=== PATIENT | male | born 1985 | race African-American/Black ===

== ENCOUNTER 2021-02-08 18:26 | Inpatient (IN) | payer MEDICAID ==
[~2021-02-08] VITALS: Ht 180.3 cm; Wt 77.0 kg
[2021-02-08] MEDS ORDERED: MORPHINE 4 MG/ML 1ML VIAL/SYRINGE (J2270) IV ONE (21:00)
[2021-02-08] MEDS ORDERED: ONDANSETRON 4MG/2ML VIAL IV ONE (21:00)
[2021-02-08] MEDS ORDERED: NS 1,000 ML IV ONE (21:00)
[2021-02-08] MEDS ORDERED: BUPR300T92 PO (21:03)
[2021-02-08] MEDS ORDERED: BUPR150T12 PO (21:03)
[2021-02-08] MEDS ORDERED: BUSP5TA PO (21:05)
[2021-02-08 21:39] LABS: BASO % 0.3 % (0.0-1.0); EOS # 0.2 10^3/uL (0.0-0.5); EOS % 2.3 % (0.0-3.0); HEMATOCRIT 42.5 % (42.0-52.0); HEMOGLOBIN 14.4 g/dl (13.5-17.5); LYMPH % 27.9 % (24.0-44.0); MEAN CORPUSCULAR HEMOGLOBIN 31.9 pg (27.0-33.0); MEAN CORPUSCULAR HGB CONC 33.9 g/dl (32.0-36.5); MEAN CORPUSCULAR VOLUME 94.2 fl (80.0-96.0); MONO # 1.4 10^3/uL (0.0-0.8); MONO % 12.9 % (2.0-8.0); NEUTROPHILS % 56.3 % (36.0-66.0); PLATELET COUNT, AUTOMATED 224 10^3/uL (150-450); RED BLOOD COUNT 4.51 10^6/uL (4.30-6.10); WHITE BLOOD COUNT 10.6 10^3/uL (4.0-10.0)
[2021-02-08 21:55] LABS: ALBUMIN 3.8 GM/DL (3.2-5.2); ALT/SGPT 35 U/L (12-78); BILIRUBIN,DIRECT 0.2 MG/DL (0.0-0.2); BILIRUBIN,TOTAL 0.5 MG/DL (0.2-1.0); BLOOD UREA NITROGEN 7 MG/DL (7-18); CARBON DIOXIDE LEVEL 28 MEQ/L (21-32); CHLORIDE LEVEL 106 MEQ/L (98-107); CREATININE FOR GFR 1.03 MG/DL (0.70-1.30); GLOMERULAR FILTRATION RATE > 60.0 (>60); GLUCOSE, FASTING 93 MG/DL (70-100); LIPASE 61 U/L (73-393); POTASSIUM SERUM 4.2 MEQ/L (3.5-5.1); SODIUM LEVEL 140 MEQ/L (136-145); TOTAL PROTEIN 7.4 GM/DL (6.4-8.2)
[2021-02-08] MEDS ORDERED: ISOVUE-370 76% 100ML VIAL As Ordered ONE (21:57)
[2021-02-08] MEDS ORDERED: KETOROLAC 30 MG/ML 1ML VIAL IV ONE (23:00)
[2021-02-08] MEDS ORDERED: ONDANSETRON 4MG/2ML VIAL IV PRN (23:55)
[2021-02-09] MEDS ORDERED: BUSP5TA PO (00:37)
[2021-02-09] MEDS ORDERED: BUPR150T12 PO (00:37)
[2021-02-09] MEDS ORDERED: VIST50CA PO (00:37)
[2021-02-09] MEDS ORDERED: VALT1TAB PO (00:37)
[2021-02-09 01:23] LABS: RSV AMPLIFICATION NEGATIVE (NEGATIVE)
[2021-02-09] MEDS: AMPICILLIN SOD/SULBACTAM SOD 3 GM in D5W MINI-BAG PLUS 100 ML IV SCH ×4 (01:47→17:26)
[2021-02-09] MEDS: LR 1,000 ML IV SCH ×2 (01:47→11:01)
[2021-02-09] MEDS: PERCOCET 5MG/325MG TAB PO PRN ×4 (02:00→16:43)
--- NOTE | 2021-02-09 05:26 | HPEPDOC ---
General Surgery H&P Date of Admission Feb 09, 2021 Attending Physician: YANIQUE OCASIO MD History and Physical CHIEF COMPLAINT: abdominal pain HISTORY OF PRESENT ILLNESS: Patient is a 35-year-old gentleman who was recently transferred to [facility], previously from [place]. He comes to the emergency room complaining of nearly a week history of ongoing abdominal pain primarily centered over the right lower abdomen. He reports that he has been eating more of a meat type of diet due to the holidays for the past couple weeks and he felt somewhat constipated and actually took some laxatives over the weekend. He complains of progressive crampy then sharp constant right sided lower abdominal pain. He felt nauseated and had one episode of vomiting over the weekend and felt febrile. He remarks that this is almost the same sensation that he felt when he was diagnosed with acute appendicitis back in 2011. He had laparoscopic appendectomy done at that time in [place]. He also reports prior history of acute diverticulitis. As his symptoms did not improve and did not resolve after the weekend he presented himself to the emergency department. In the emergency room he was noted to be afebrile, tender over the right lower quadrant area. He had minimal leukocytosis. He is CT abdomen and pelvis that was done as part of the work-up which was initially read of's possible acute appendicitis. Thus I was called into evaluate the patient. ALLERGIES: Please see below. HOME MEDICATIONS: Please see below. PAST MEDICAL HISTORY: 1. History of acute diverticulitis, prior appendicitis 2. Gastroesophageal reflux. 3- depression PAST SURGICAL HISTORY: 1. right shoulder surgery. 2. appendectomy 3. hernia repair x 3. PERSONAL/SOCIAL HISTORY: Reports smoking, occasional alcohol intake. REVIEW OF SYSTEMS: GENERAL: Patient symptoms ongoing since last week, reports low-grade fever at home over the weekend. Denies any sick contacts.. HEENT: Denies any problems with vision or hearing. Denies hoarseness or changes in his voice. NECK: Denies any neck pain. CARDIOVASCULAR: Denies any chest pains. MUSCULOSKELETAL: Denies joint pains back pains. SKIN: Denies rash. NEUROLOGIC: Denies headaches. PSYCHIATRIC: Reports history of depression on medication. ENDOCRINE: Denies thyroid disease. HEMATOLOGY/ONCOLOGY: Denies any bleeding or clotting disorder. PULMONARY: Denies chronic cough, dyspnea and wheezing. GASTROINTESTINAL: See HPI. GENITOURINARY: Denies dysuria, frequency, hematuria and nocturia. ENDOCRINE: Denies polydipsia, polyphagia, polyuria, heat or cold intolerance. INFECTIOUS: Denies any recent upper respiratory tract infection, UTI, need for use of antibiotics. NUTRITION: Reports poor appetite since . PHYSICAL EXAMINATION: VITAL SIGNS: Please see below. GENERAL APPEARANCE: Patient seen, sitting up on the bed, mildly uncomfortable but otherwise does not appear to be in any acute distress. He is pleasant and cooperative.. Awake, alert, oriented. HEENT: Normocephalic, atraumatic. Anicteric sclerae. Lips moist. CHEST: No chest wall abnormalities. Normal respiratory motion/effort. NECK: Supple. No thyromegaly. No lymphadenopathies. LUNGS: Lung sounds are clear to auscultation bilaterally. No wheezing appreciated. HEART: No chest wall abnormalities. Heart rate and rhythm are regular with no murmurs. ABDOMEN: Abdomen is soft, relatively flat, nondistended. Laparoscopic port sites from his appendectomy noted. No umbilical, incisional hernias. He is tender on deep palpation over the right lower quadrant area, no rebound or guarding. SKIN: Warm and dry. EXTREMITIES: No deformities, no significant edema. NEUROLOGICAL: Awake, alert and oriented normal extremity movement. ANCILLARIES:. LABORATORY DATA: Please see below. MICROBIOLOGY: Please see below. IMAGING: CT abdomen and pelvis Initially the overnight radiologist read the CT is having acute appendicitis with an appendicolith at the base. This was reviewed by our radiologist in- house and discussed with me. He thinks the earlier referred to appendicolith as the staple line. He does not particularly see any remnant of the appendix. He thinks there is an isolated ascending colon diverticuli with associated diverticulitis, small amount of reactive fluid in the right pericolic gutter IMPRESSION AND PLAN: Patient with right lower quadrant pain and discomfort, prior appendectomy. Initially we entertain possibility of stump appendicitis and I actually booked him to the OR for possible laparoscopic exploration. After discussing with our radiologist, he is revised the reading. The earlier appendicolith was noted this most likely staple line. There is a separate diverticula in the ascending colon which appears inflamed thus more consistent with diverticulitis at the ascending colon. No gross perforation. No abscesses noted. Patient is afebrile here though he is noticeably tender over the right lower quadrant area. I have earlier booked him to the OR, will hold off any surgery and treat him somebody who was noncomplicated acute diverticulitis on the right side with IV antibiotics. I will keep him on n.p.o. with some sips of water and ice chips for comfort until the pain improves. We will monitor his improvement or nonimprovement. Vital Signs Vital Signs Date Time Temp Pulse Resp B/P (MAP) Pulse Ox O2 Delivery O2 Flow Rate FiO2 02/09/21 03:00 16 02/09/21 02:00 98.7 64 118/62 (80) 96 Room Air I&Os I&O- Last 24 Hours up to 6 AM 02/09/21 06:00 Intake Total 1000 ml Balance 1000 ml Laboratory Data Labs 24H Laboratory Tests 2 02/08/21 19:15: Immature Granulocyte % (Auto) 0.3, Neutrophils (%) (Auto) 56.3, Lymphocytes (%) (Auto) 27.9, Monocytes (%) (Auto) 12.9H, Eosinophils (%) (Auto) 2.3, Basophils (%) (Auto) 0.3, Neutrophils # (Auto) 6.0, Lymphocytes # (Auto) 3.0, Monocytes # (Auto) 1.4H, Eosinophils # (Auto) 0.2, Basophils # (Auto) 0.0, Nucleated Red Blood Cells % (auto) 0.0, Anion Gap 6L, Glomerular Filtration Rate > 60.0, Calcium Level 9.0, Total Bilirubin 0.5, Direct Bilirubin 0.2, Aspartate Amino Transf (AST/SGOT) 18, Alanine Aminotransferase (ALT/SGPT) 35, Alkaline Phosphatase 79, Total Protein 7.4, Albumin 3.8, Albumin/Globulin Ratio 1.1, Lipase 61L 02/09/21 00:16: Coronavirus (COVID-19)(PCR) NEGATIVE, Influenza Type A (RT-PCR) NEGATIVE, Influenza Type B (RT-PCR) NEGATIVE, Respiratory Syncytial Virus (PCR) NEGATIVE CBC/BMP Laboratory Tests 02/08/21 19:15 Home Medications Scheduled Bupropion Hcl (Bupropion Xl) 150 Mg Tab.er.24h, 150 MG PO DAILY, (Reported) Buspirone HCl (Buspirone HCl) 5 Mg Tablet, 5 MG PO TID, (Reported) Hydroxyzine Pamoate (Vistaril) 25 Mg Capsule, 25 MG PO TID, (Reported) Valacyclovir HCl (Valtrex) 1,000 Mg Tablet, 1 GM PO DAILY, (Reported) Allergies Coded Allergies: No Known Allergies (Unverified , 02/08/21) A-FIB/CHADSVASC A-FIB History Current/History of A-Fib/PAF?: No Current PO Anticoag Therapy: No YANIQUE OCASIO MD Feb 09, 2021 05:26
[2021-02-09 06:58] LABS: BASO % 0.4 % (0.0-1.0); EOS # 0.2 10^3/uL (0.0-0.5); EOS % 3.3 % (0.0-3.0); HEMATOCRIT 39.5 % (42.0-52.0); HEMOGLOBIN 13.3 g/dl (13.5-17.5); LYMPH % 28.1 % (24.0-44.0); MEAN CORPUSCULAR HEMOGLOBIN 31.9 pg (27.0-33.0); MEAN CORPUSCULAR HGB CONC 33.7 g/dl (32.0-36.5); MEAN CORPUSCULAR VOLUME 94.7 fl (80.0-96.0); MONO # 0.9 10^3/uL (0.0-0.8); NEUTROPHILS # 3.8 10^3/uL (1.5-8.5); NEUTROPHILS % 54.8 % (36.0-66.0); PLATELET COUNT, AUTOMATED 205 10^3/uL (150-450); RED BLOOD COUNT 4.17 10^6/uL (4.30-6.10); WHITE BLOOD COUNT 6.9 10^3/uL (4.0-10.0)
[2021-02-09 07:25] LABS: BLOOD UREA NITROGEN 7 MG/DL (7-18); CALCIUM LEVEL 8.7 MG/DL (8.5-10.1); CARBON DIOXIDE LEVEL 28 MEQ/L (21-32); CHLORIDE LEVEL 107 MEQ/L (98-107); CREATININE FOR GFR 0.98 MG/DL (0.70-1.30); GLOMERULAR FILTRATION RATE > 60.0 (>60); GLUCOSE, FASTING 98 MG/DL (70-100); POTASSIUM SERUM 4.3 MEQ/L (3.5-5.1); SODIUM LEVEL 139 MEQ/L (136-145)
[2021-02-09 08:00] VITALS: BP 100/60
[2021-02-09] MEDS ORDERED: VIST25CA PO (08:27)
[2021-02-09] MEDS ORDERED: HOME MED LIST COMPLETE! XX SCH (08:30)
[2021-02-09] MEDS: NICOTINE 21MG/24HR 1 EA TRANSDERMAL TD SCH (08:58)
[2021-02-09] MEDS: MORPHINE 2 MG/ML 1ML VIAL (J2270) IV PRN ×3 (08:58→20:05)
[2021-02-09] MEDS: buPROPion **XL** TABLET 150MG (WELLBUTRIN XL) PO SCH (09:00)
--- NOTE | 2021-02-09 09:10 | REP ---
INDICATION: RLQ pain. COMPARISON: None. TECHNIQUE: Standard helical technique after the intravenous administration of 100 cc Isovue 370. FINDINGS: The lung bases are clear. The liver, gallbladder, spleen, pancreas, adrenal glands, and kidneys are within normal limits. The abdominal aorta and para-aortic regions are within normal limits. There is a trace amount of fluid in the right paracolic gutter. There is no free air. There is single area of focal wall thickening in the cecum/ascending colon. A well-demarcated suture line is seen in the right lower quadrant consistent with previous appendectomy. A few scattered diverticula are also seen in the descending colon and sigmoid colon. Bone window technique throughout the examination shows the osseous structures to be within normal limits. IMPRESSION: There is evidence of isolated ascending colon diverticulitis with a small amount of reactive fluid in the right pericolic gutter. A call was placed to Dr. YANIQUE OCASIO and these findings were discussed. <Electronically signed by Tomas Short > 02/09/21 [id number]
--- NOTE | 2021-02-09 13:36 | IPNPDOC ---
Text Note Date of Service The patient was seen on 02/09/21. NOTE I informed the patient of the discrepancy of the virtual radiology read and our inhouse radiology read on his ct scan. Our radiologist thinks the appendectomy is complete and the area referred to as an appendicolith is the staple line. He notes a diverticula on the ascending colon at the center of the inflammation so a right sided diverticulitis. No free air, or significant loculated pericolonic fluid collection noted. We will cancel the planned diagnostic laparoscopy and continue with abx. I will add flagyl to his abx regiment. I will start him on clears. I expect the discomfort to improve in 24-48 hrs otherwise we will repeat the ct with po and iv contrast. VS,Fishbone, I+O VS, Fishbone, I+O Laboratory Tests 02/08/21 19:15 02/09/21 06:31 Vital Signs Date Time Temp Pulse Resp B/P (MAP) Pulse Ox O2 Delivery O2 Flow Rate FiO2 02/09/21 11:32 18 02/09/21 08:00 97.0 60 100/60 (73) 96 Room Air l I&O- Last 24 Hours up to 6 AM 02/09/21 06:00 Intake Total 1000 ml Balance 1000 ml YANIQUE OCASIO MD Feb 09, 2021 13:36
[2021-02-09 14:00] VITALS: BP 105/58
[2021-02-09] MEDS: metroNIDAZOLE 500 MG in IV 1 EA IV SCH (16:39)
[2021-02-09] MEDS: valACYclovir HCL 500 MG TAB PO SCH (16:59)
[2021-02-09] MEDS: hydrOXYzine 25 MG TAB PO SCH ×2 (17:27→20:04)
[2021-02-09] MEDS: busPIRone 5 MG TAB PO SCH ×2 (17:27→20:04)
[2021-02-09 22:00] VITALS: BP 106/58
[2021-02-10] MEDS: LR 1,000 ML IV SCH ×2 (00:24→05:55)
[2021-02-10] MEDS: metroNIDAZOLE 500 MG in IV 1 EA IV SCH ×2 (00:24→08:00)
[2021-02-10] MEDS: MORPHINE 2 MG/ML 1ML VIAL (J2270) IV PRN ×2 (00:39→05:55)
[2021-02-10] MEDS: AMPICILLIN SOD/SULBACTAM SOD 3 GM in D5W MINI-BAG PLUS 100 ML IV SCH ×2 (02:15→05:55)
[2021-02-10] MEDS: PERCOCET 5MG/325MG TAB PO PRN (02:33)
[2021-02-10 06:00] VITALS: BP 124/66
[2021-02-10 07:55] LABS: BASO % 0.2 % (0.0-1.0); EOS # 0.3 10^3/uL (0.0-0.5); EOS % 2.9 % (0.0-3.0); HEMOGLOBIN 13.1 g/dl (13.5-17.5); LYMPH # 1.9 10^3/uL (1.5-5.0); LYMPH % 22.1 % (24.0-44.0); MEAN CORPUSCULAR HEMOGLOBIN 31.8 pg (27.0-33.0); MEAN CORPUSCULAR HGB CONC 33.6 g/dl (32.0-36.5); MEAN CORPUSCULAR VOLUME 94.7 fl (80.0-96.0); MONO # 0.9 10^3/uL (0.0-0.8); NEUTROPHILS # 5.5 10^3/uL (1.5-8.5); NEUTROPHILS % 64.6 % (36.0-66.0); PLATELET COUNT, AUTOMATED 201 10^3/uL (150-450); RED BLOOD COUNT 4.12 10^6/uL (4.30-6.10); WHITE BLOOD COUNT 8.5 10^3/uL (4.0-10.0)
[2021-02-10 08:20] LABS: BLOOD UREA NITROGEN 6 MG/DL (7-18); C REACTIVE PROTEIN QUANTITATIV 1.64 MG/DL (0.00-0.30); CALCIUM LEVEL 8.5 MG/DL (8.5-10.1); CARBON DIOXIDE LEVEL 30 MEQ/L (21-32); CHLORIDE LEVEL 107 MEQ/L (98-107); CREATININE FOR GFR 0.96 MG/DL (0.70-1.30); GLOMERULAR FILTRATION RATE > 60.0 (>60); GLUCOSE, FASTING 92 MG/DL (70-100); POTASSIUM SERUM 4.3 MEQ/L (3.5-5.1); SODIUM LEVEL 141 MEQ/L (136-145)
[2021-02-10] MEDS ORDERED: CIPR-249 PO (08:56)
[2021-02-10] MEDS ORDERED: METR-265 PO (08:57)
[2021-02-10] MEDS ORDERED: PERCOCET PO (08:57)
[2021-02-10] MEDS: NICOTINE 21MG/24HR 1 EA TRANSDERMAL TD SCH (09:00)
[2021-02-10] MEDS: busPIRone 5 MG TAB PO SCH (09:21)
[2021-02-10] MEDS: valACYclovir HCL 500 MG TAB PO SCH (09:21)
[2021-02-10] MEDS: hydrOXYzine 25 MG TAB PO SCH (09:21)
[2021-02-10] MEDS: buPROPion **XL** TABLET 150MG (WELLBUTRIN XL) PO SCH (09:21)
--- NOTE | 2021-02-10 13:01 | DS.PDOC ---
Discharge Summary General Date of Admission Feb 08, 2021 at 23:53 Date of Discharge February 10, 2021 Attending Physician: YANIQUE OCASIO MD Discharge Summary PROCEDURES PERFORMED DURING STAY: None. ADMITTING DIAGNOSES: 1. Possible stump appendicitis versus diverticulitis. DISCHARGE DIAGNOSES: 1. Cecal diverticulitis. COMPLICATIONS/CHIEF COMPLAINT: Right lower quadrant pain HISTORY OF PRESENT ILLNESS: Patient is a 35-year-old gentleman who was recently transferred to [facility], previously from [place]. He comes to the emergency room complaining of nearly a week history of ongoing abdominal pain primarily centered over the right lower abdomen. He reports that he has been eating more of a meat type of diet due to the holidays for the past couple weeks and he felt somewhat constipated and actually took some laxatives over the weekend. He complains of progressive crampy then sharp constant right sided lower abdominal pain. He felt nauseated and had one episode of vomiting over the weekend and felt febrile. He remarks that this is almost the same sensation that he felt when he was diagnosed with acute appendicitis back in 2011. He had laparoscopic appendectomy done at that time in [place]. He also reports prior history of acute diverticulitis. As his symptoms did not improve and did not resolve after the weekend he presented himself to the emergency department. In the emergency room he was noted to be afebrile, tender over the right lower quadrant area. He had minimal leukocytosis. He is CT abdomen and pelvis that was done as part of the work-up which was initially read of's possible acute appendicitis. Thus I was called into evaluate the patient. HOSPITAL COURSE: Initially admitted him entertaining possibility that he may need laparoscopic evaluation to figure out if he has stump appendicitis. His symptoms mainly involve right lower quadrant discomfort about a week in duration. Further discussion with the in-house radiologist clarifies that the appendicolith that was noted was most likely a jagged staple line and he has a separate ascending colon tic that this is center of the inflammation away from that appendiceal stump more consistent with cecal or ascending colon diverticulitis. There is no abscess. There is no free perforation. Thus we I just continued him on IV antibiotics. He was placed on Unasyn 3 g IV every 6 hours on admission I added metronidazole 500 mg IV every 8 hours. I started him on clear liquids which he tolerated and was asked to be advanced to soft solid foods same evening which I did which he also tolerated. On further discussion with him he has had several diverticulitis episode through the years when he was in [place], has had a colonoscopy for evaluation though he could not tell me when this was done but it was several years ago. He has been having right lower quadrant discomfort here and there. He has had a laparoscopic appendectomy back in 2011 as previously noted. The following morning on reevaluation he felt much better though there still is some right lateral abdominal discomfort that he feels. He is able to tolerate food. He has been afebrile. Looks more comfortable than he was in admission. He has been subsequently discharged on oral antibiotics. DISCHARGE MEDICATIONS: Please see below. ALLERGIES: Please see below. PHYSICAL EXAMINATION ON DISCHARGE: VITAL SIGNS: Please see below. GENERAL: Patient moving around in the room comfortably HEENT: Normocephalic, atraumatic, lips and mucosa are moist NECK: Supple, no thyromegaly, no jugular venous distention CARDIOVASCULAR EXAMINATION: Regular heart rate and rhythm RESPIRATORY EXAMINATION: Clear breath sounds bilaterally ABDOMINAL EXAMINATION: Abdomen looks flatter, softer. Very mild right lateral tenderness is residual. No rebound or guarding. EXTREMITIES: No significant edema SKIN: No skin rashes NEUROLOGICAL EXAMINATION: Awake, alert and oriented LABORATORY DATA: Please see below. IMAGING: CT abdomen and pelvis that was done in the emergency room PROGNOSIS: Good ACTIVITY: As tolerated. DIET: Low residue diet which he may advance to high-fiber diet once symptoms fully resolve DISCHARGE PLAN: Patient is discharged home on ciprofloxacin and metronidazole x10 days DISPOSITION: 01 Home, Self-Care. DISCHARGE INSTRUCTIONS: 1. Low residue diet as advised. 2. Take Metamucil 1 tablespoon to a glass of water daily 3. Advance to high-fiber diet once symptoms fully resolve 4. Follow-up in clinic in 2 weeks 5. Call if with return of abdominal pain or worsening abdominal pain, fever. ITEMS TO FOLLOWUP ON ON OUTPATIENT: 1. Symptom check. 2. Consider interval colonoscopy. DISCHARGE CONDITION: Stable. TIME SPENT ON DISCHARGE: 30 minutes. Vital Signs/I&Os Vital Signs Date Time Temp Pulse Resp B/P (MAP) Pulse Ox O2 Delivery O2 Flow Rate FiO2 02/10/21 06:05 16 02/10/21 06:00 98.0 58 124/66 (85) 100 Room Air I&O- Last 24 Hours up to 6 AM 02/10/21 05:59 Intake Total 2520 ml Output Total 1450 ml Balance 1070 ml Laboratory Data Labs 24H Laboratory Tests 2 02/10/21 07:41: Immature Granulocyte % (Auto) 0.2, Neutrophils (%) (Auto) 64.6, Lymphocytes (%) (Auto) 22.1L, Monocytes (%) (Auto) 10.0H, Eosinophils (%) (Auto) 2.9, Basophils (%) (Auto) 0.2, Neutrophils # (Auto) 5.5, Lymphocytes # (Auto) 1.9, Monocytes # (Auto) 0.9H, Eosinophils # (Auto) 0.3, Basophils # (Auto) 0.0, Nucleated Red Blood Cells % (auto) 0.0, Anion Gap 4L, Glomerular Filtration Rate > 60.0, Calcium Level 8.5, C-Reactive Protein, Quantitative 1.64H CBC/BMP Laboratory Tests 02/10/21 07:41 Discharge Medications Scheduled Bupropion Hcl (Bupropion Xl) 150 Mg Tab.er.24h, 150 MG PO DAILY, (Reported) Buspirone HCl (Buspirone HCl) 5 Mg Tablet, 5 MG PO TID, (Reported) Ciprofloxacin HCl (Cipro) 500 Mg Tablet, 1 TAB PO BID Hydroxyzine Pamoate (Vistaril) 25 Mg Capsule, 25 MG PO TID, (Reported) Metronidazole (Metronidazole) 500 Mg Tablet, 1 TAB PO TID Valacyclovir HCl (Valtrex) 1,000 Mg Tablet, 1 GM PO DAILY, (Reported) Scheduled PRN Oxycodone/Acetaminophen (Oxycodone-Acetaminophen 5-325) 1 Each Tablet, 1 TAB PO Q6HP PRN for MODERATE PAIN (PS 5-7) Allergies Coded Allergies: No Known Allergies (Unverified , 02/08/21) YANIQUE OCASIO MD Feb 10, 2021 13:01
== END 2021-02-10 09:55 | disposition home or self-care (01) | DRG 244 ==
LOC: M ED 18:26 → M ED INP 23:53 → ENRESERV 02-09 06:11 → M MS5PR 02-09 07:40
PROVIDERS: ADMIT Surgery; ATTEND Surgery
DX: K57.32 Diverticulitis of large intestine without perforation or abscess without bleeding (principal); F32.A Depression, unspecified; K21.9 Gastro-esophageal reflux disease without esophagitis; Z90.49 Acquired absence of other specified parts of digestive tract; Z20.822 Contact with and (suspected) exposure to COVID-19; Z79.899 Other long term (current) drug therapy